=== PATIENT | male | born 1935 | race Two or more races ===

== ENCOUNTER 2020-11-01 08:02 | Outpatient (CLI) | payer OTHER | END 2020-11-01 08:21 | disposition home or self-care (01) | LOC: TOM 08:02 | PROVIDERS: ATTEND Internal Medicine | DX: N40.1 Benign prostatic hyperplasia with lower urinary tract symptoms (principal); R10.30 Lower abdominal pain, unspecified; R10.10 Upper abdominal pain, unspecified; E78.00 Pure hypercholesterolemia, unspecified; I11.9 Hypertensive heart disease without heart failure | CPT/HCPCS: 74177; Q9965 ==